=== PATIENT | male | born 1980 | race Caucasian/White ===

== ENCOUNTER 2021-01-13 07:35 | Outpatient (CLI) | payer OTHER, SELFPAY ==
--- NOTE | 2021-02-05 22:46 | WPDHOMESLEEP ---
Sleep Study - Home Unattended Date of Study: 01/13/21 Ordering Provider: Keith Disla PA-C Interpreting Provider: Tess Pedro MD Home Sleep Study Type: Apnea Link Air Height: 1.85 m Weight: 79.379 kg Body Mass Index: 23.1 Neck Circumference (inches): 15 Warfield: 13 Reason for Sleep Study hypersomnolence Sleep History Omkar Bae is a 40 year old male with complaints of snoring, restless sleep, constantly waking at night and never feeling rested in the morning. He always has excessive daytime sleepiness. He rarely awakens from sleep feeling short of breath. He occasionally awakens at night with heartburn, belching or coughing. He constantly snores loudly. He constantly has trouble sleeping with a cold. He rarely wakes up gasping for breath at night. He constantly is breathing problems at night observed by others. He does not sweat excessively at night. He occasionally notices his heart pounding or beating irregularly at night. He occasionally falls asleep during the day, never falls asleep involuntarily or while driving. He does not have loss of muscle tone with strong emotion. He rarely has daytime difficulties due to excessive sleepiness. He does not feel paralyzed on waking or falling asleep. He occasionally has vivid dreamlike scenes upon awakening or falling asleep. He does not feel afraid to go to sleep. He does not have nightmares. He occasionally remembers his dreams. He frequently has racing thoughts. He rarely feels sad, depressed or anxious. He occasionally has muscular tension. He frequently notices parts of his body jerking. He does not kick at night. He rarely has crawling and aching feelings in his legs. He does not have any kind of leg pain at night. He frequently has morning jaw pain, occasionally grinds his teeth during sleep. He occasionally is bothered by pain during the day. He does not awaken during the night due to pain. He occasionally wakes up feeling stiff in the morning, occasionally with sore or achy muscles and occasionally with pain in the neck and spine. He has fatigue. He has a deviated septum. Normal bedtime is 9:30 p.m. falling asleep within 15 minutes, typically waking 3-4 times at night for 5 minutes. While awake, he may rule over, change position or go urinate. He wakes in the morning at 6:00 a.m.. He estimates getting 7 hours of sleep at night. On the weekends he may go to bed a little later 10:30 p.m. but still wakes by 6:00 a.m.. He does not take naps. A short nap might be refreshing. He is usually drowsy for 2 hours or longer. He feels better in the morning compared to other times of day and this is after a workout. He never awakes feeling refreshed. .Habits: Never smoked tobacco. He does not drink caffeine. He drinks alcohol 1-2 on the days that he drinks, does drink daily. [facility] Past Medical History Medical History (Updated 02/05/21 @ 22:53 by Tess Pedro MD) Hyperlipidemia Hypertension Hypothyroidism Surgical History Surgical History Hx of LASIK Family History Family History Mother Patient's mother is in good health Father Patient's father is Hypertension Social History Social History Smoking status: Never smoker Second hand tobacco smoke exposure: No Alcohol intake: current Medications Home Medications Medication Instructions Recorded Confirmed Type lisinopril 10 mg tablet 10 mg PO DAILY #90 tablet 11/08/20 11/08/20 Rx nutritional supplement-fiber oral ea PO 11/08/20 11/08/20 History liquid levothyroxine 25 mcg tablet 25 mcg PO DAILY #90 tablet 02/04/21 Rx Sleep Procedure This test was performed using 4 channel monitoring including respiratory effort channel, snoring channel, heart rate channel, and oxygen saturat
[2021-02-05 22:56] VITALS: BMI 23.1
== END 2021-01-14 12:04 | disposition home or self-care (01) ==
LOC: ANHCSM 07:36
PROVIDERS: PCP Internal Medicine; Visit Provider Physician Assistant
DX: G47.10 Hypersomnia, unspecified (principal); R53.83 Other fatigue; R06.83 Snoring
CPT/HCPCS: 95806

== ENCOUNTER 2021-08-29 10:51 | Emergency (ER) | payer BC, SELFPAY ==
--- NOTE | ~2021-08-29 | XR_ITS ---
EXAMINATION: XR chest 1V portable DATE: 08/29/2021 11:20 INDICATION: Headache, dizziness and hypertension TECHNIQUE: frontal view of the chest was obtained. COMPARISON: None FINDINGS: Lungs are well-expanded and clear with no focal airspace opacities, pulmonary edema, pleural effusion or pneumothorax. The cardiomediastinal silhouette is normal. Mild lower thoracic levocurvature. IMPRESSION: 1. No acute cardiopulmonary disease. Reviewed, dictated and finalized at location A.
--- NOTE | ~2021-08-29 | CT_ITS ---
EXAMINATION: CT brain wo con EXAM DATE: 08/29/2021 11:05 INDICATION: Headache, dizziness, stroke protocol. Symptoms since last night. TECHNIQUE: Spiral CT of the head was performed without contrast. Axial, coronal and sagittal images were reviewed. The dose-length product (DLP) for this examination was 605.33 mGy-cm. The exposure w as tailored according to patient size, and iterative reconstruction (ASIR) was used as additional dos e reduction technique. There is no prior study for comparison. FINDINGS: There is no acute intraparenchymal hemorrhage. No evidence of intraparenchymal brain mass lesion. No evidence of acute infarction. There is no mass effect or midline shift. The ventricles are normal in size. There are no extra-axial collections. There are no acute calvarial fractures. T he orbits are unremarkable. Soft tissue is unremarkable. The visualized sinuses and mastoid air tal ls are well aerated. IMPRESSION: 1. No acute intracranial findings. As per stroke protocol, I called these results to emergency room, discussed with Joseph King at 08/29/2021 11:09 CDT. Reviewed, dictated and finalized at location B. IMPRESSION: 1. No acute intracranial findings. As per stroke protocol, I called these results to emergency room, discussed wit meena Zheng DO at 08/29/2021 11:09 CDT.
--- NOTE | ~2021-08-29 | CT_ITS ---
EXAMINATION: CTA brain carotid EXAM DATE: 08/29/2021 12:13 INDICATION: Vertigo, headaches. Dizziness. TECHNIQUE: Spiral CTA of the carotid arteries was performed with intravenous injection 100 cc of Om nipaque 350. Axial, coronal, sagittal reformatted images reviewed. Additional reformatted images cre ated on dedicated 3-D workstation. NASCET comparable standard used to assess the degree of arterial stenosis. Spiral CT angiogram cerebral arteries performed with the same intravenous injection of con trast. Source images of the brain CTA transferred to dedicated workstation for 3-D rotational image c reation. Coronal, sagittal maximum intensity pixel images also reviewed. The dose-length product (D LP) for this examination was 1325.57 mGy-cm. The exposure was tailored according to patient size, a nd iterative reconstruction (ASIR) was used as additional dose reduction technique. Correlation is ma de to noncontrast head CT earlier same date. FINDINGS: There is no carotid plaque, 0% carotid bulb stenosis bilaterally. The vertebral arteries ar e codominant. There is no carotid or vertebral basilar arterial dissection or fibromuscular dysplasi a. There are no cerebral artery aneurysms. There is symmetric cerebral artery arborization. The sagit alberto, transverse and sigmoid sinuses enhance normally, no venous sinus thrombosis. Internal cerebral v eins also enhance normally. Incidental Findings: Small amount of right maxillary sinus fluid and mild mucoperiosteal disease infe riorly. Clear mastoids and middle ears. IMPRESSION: 1. No acute carotid or intracranial findings. 2. Bilateral carotid bulb 0% stenosis. 3. Small right maxillary fluid and mild mucoperiosteal thickening. Reviewed, dictated and finalized at location B.
[2021-08-29 10:55] VITALS: BP 169/110; PULSE 68; RESP 18; TEMP 36.7; O2SAT 100
--- NOTE | 2021-08-29 10:56 | ECG_ITS ---
Measurements Intervals [place] Rate: 71 P: 71 DE: 119 QRS: 89 QRSD: 89 T: 65 QT: 358 QTc: 391 Interpretive Statements SINUS RHYTHM WITH SHORT DE INTERVAL POSSIBLE LEFT ATRIAL ENLARGEMENT [-0.1mV P WAVE IN V1/V2] BORDERLINE ECG NO PREVIOUS ECG AVAILABLE FOR COMPARISON Electronically Signed On 08-29-2021 17:19:29 CDT by Julio Cesar Nieto M.D.
[2021-08-29 11:10] VITALS: BP 155/99; PULSE 72; RESP 18; O2SAT 100
[2021-08-29 11:19] VITALS: BP 155/99; PULSE 70; PULSE 71; RESP 13; RESP 19; O2SAT 100
--- NOTE | 2021-08-29 11:19 | ED.NEUROSD ---
HPI - Neuro Symptoms/Deficit General Chief Complaint: Suspected CVA Stated Complaint: vertigo, headaches Time Seen by Provider: 08/29/21 10:56 Source: RN notes reviewed History of Present Illness HPI Narrative: Patient presents emergency department from home for dizziness. Patient states he was in bed this morning and rolled over approximately 4 AM he states he instantly had dizziness that has been intermittent since that time the dizziness is described as the room spinning he denies having any unilateral weakness or deficits he denies any fevers or chills vision changes facial droop trouble speaking weakness of the extremities or any other symptoms. Related Data Home Medications Medication Instructions Recorded Confirmed nutritional supplement-fiber oral ea PO 11/08/20 08/26/21 liquid Adrenal LF BYMOUTH DAILY 08/26/21 08/26/21 Lactobacillus cap PO 08/26/21 08/26/21 acidophilus-Bifidobac.animalis 2.5 billion cell capsule Thyro LF BYMOUTH BID 08/26/21 08/26/21 cholecalciferol (vitamin D3) 10 10 mcg PO DAILY 08/26/21 08/26/21 mcg/drop (400 unit/drop) oral drops omega 3,5,6,7,9 combination no.1 cap PO 08/26/21 08/26/21 700 mg-salmon oil 1,500 mg capsule Allergies Allergy/AdvReac Type Severity Reaction Status Date / Time No Known Allergies Allergy Verified 08/29/21 11:07 Review of Systems Review of Systems: Gen.: Denies fevers or chills ENT: Denies congestion Respiratory: Denies shortness of breath or cough CV: Denies chest pain or palpitations GI: Denies abdominal pain nausea, emesis or diarrhea denies burning, urgency, frequency or hematuria Musculoskeletal: Denies back pain or muscle pain Neuro: See HPI Skin: Denies rash Except as documented, all other systems reviewed and negative [facility] Past Medical History Medical History Hyperlipidemia Hypertension Hypothyroidism Surgical History Surgical History Hx of LASIK Family History Family History Mother Patient's mother is in good health Father Patient's father is Hypertension Social History Social History Smoking status: Never smoker Second hand tobacco smoke exposure: No Alcohol intake: current Exam Narrative: APPEARANCE: No acute distress, nontoxic, resting in bed HEENT: Normocephalic, atraumatic, OMM, TMs clear bilaterally EYES: PERRL, EOMI NECK: Supple, nontender, full range of motion without pain, no meningismus RESPIRATORY: No respiratory distress, clear to auscultation bilaterally with no rhonchi wheezing or rales CARDIOVASCULAR: RRR s murmur ABDOMINAL: Soft, nontender, nondistended MUSCULOSKELETAL: Moves all extremities. No clubbing, cyanosis or edema. NEURO: A and O ?3, following commands, speech normal, cranial nerves II through XII grossly intact,muscle strength 5 out of 5 bilateral upper and lower extremities, no pronator drift SKIN:: Warm, dry. Normal Color PSYCHIATRIC: Normal affect/mood Course Course Emergency Course: Patient states vertigo is improved at this time Discussed with patient results of workup and diagnosis. Discussed need for follow-up with primary care, proper use of medication, and reasons to return to the emergency department. Patient understands and agrees to current treatment plan Vital Signs Vital signs: Vital Signs Temperature 98.0 F 08/29/21 10:55 Pulse Rate 68 08/29/21 10:55 Respiratory Rate 18 08/29/21 10:55 Blood Pressure 169/110 H 08/29/21 10:55 Pulse Oximetry 100 08/29/21 10:55 Temperature 98.0 F 08/29/21 10:55 Pulse Rate 69 08/29/21 12:45 Respiratory Rate 18 08/29/21 12:45 Blood Pressure 136/87 08/29/21 12:45 Pulse Oximetry 100 08/29/21 12:45 MDM - Neuro Symptoms/Deficit MDM Narrative Medical decisi
[2021-08-29 11:24] LABS: Basophils Percent Auto 0.6 % (0.2-1.2); Eosinophils Absolute Auto 0.2 K/mm3 (0-0.3); Eosinophils Percent Auto 3.3 % (0-4.4); Hematocrit 46.1 % (42.0-52.0); Hemoglobin 15.8 g/dL (14.0-18.0); Immature Granulocyte Absolute 0.01 K/mm3 (0.00-0.031); Immature Granulocyte Percent A 0.2 % (0-0.5); Lymphocytes Absolute Auto 2.21 K/mm3 (0.9-3.2); Lymphocytes Percent Auto 42.6 % (18.3-44.2); Mean Corpuscular HGB Conc 34.3 g/dl (32-36); Mean Corpuscular Hemoglobin 30.2 pg (26-34); Mean Corpuscular Volume 88.1 fl (80-100); Mean Platelet Volume 9.7 fl (7.4-10.4); Monocytes Absolute Auto 0.4 K/mm3 (0.1-0.6); Monocytes Percent Auto 7.5 % (2.6-8.5); Neutrophils Absolute Auto 2.4 K/mm3 (1.3-6.7); Neutrophils Percent Auto 45.8 % (45.5-73.1); Platelet Count Result 231 k/mm3 (150-375); Red Blood Count 5.23 M/mm3 (4.6-6.20); White Blood Count 5.2 K/mm3 (4.5-10.0)
[2021-08-29] MEDS: SODIUM CHLORIDE 0.9% IV 1,000 ML 999 ML IV CONT (11:26)
[2021-08-29] MEDS: ONDANSETRON INJ 4 MG/2 ML VIAL IV PUSH (11:26)
[2021-08-29] MEDS: MECLIZINE HCL 25 MG TABLET PO (11:26)
[2021-08-29 11:33] LABS: INR 0.9; Partial Thromboplastin Time 27.1 SECONDS (22.3-36.8); Prothrombin Time 11.9 Seconds (11.1-14.7)
[2021-08-29 11:48] LABS: Alanine Aminotransferase 33 U/L (4-50); Albumin Level 4.8 g/dL (3.5-5.1); Alkaline Phosphatase 72 U/L (38-126); Anion Gap 9 mmol/L (8-16); Aspartate Amino Transferase 35 U/L (17-59); Bilirubin,Total 0.9 mg/dL (0.2-1.3); Blood Urea Nitrogen 18 mg/dL (9-20); Calcium 9.6 mg/dL (8.4-10.2); Carbon Dioxide 28 mmol/L (22-30); Chloride 102 mmol/L (98-107); Estimated CRCL calculation 94 ml/min; Estimated Glomerular Filt Rate > 60; Glucose 116 mg/dL (65-110); Potassium 4.3 mmol/L (3.4-5.0); Sodium 139 mmol/L (137-145)
[2021-08-29 11:59] LABS: Troponin I < 0.012 ng/mL (0.000-0.034)
[2021-08-29 12:45] VITALS: BP 136/87; PULSE 69; RESP 18; O2SAT 100
[2021-08-29 14:02] LABS: Glucose Point of Care 110 mg/dl (65-105)
== END 2021-08-29 14:02 | disposition home or self-care (01) ==
PROVIDERS: Emergency Provider Emergency Medicine; PCP Internal Medicine
DX: R42 Dizziness and giddiness (principal); E78.5 Hyperlipidemia, unspecified; I10 Essential (primary) hypertension; E03.9 Hypothyroidism, unspecified
CPT/HCPCS: 36415; 70450; 70496; 70498; 71045; 80053; 82948; 84484; 85025; 85610; 85730; 93005; 96361; 96374; 99284; A9270; J2405; J7030; Q9967

== ENCOUNTER 2022-08-16 09:25 | Emergency (ER) | payer BC, SELFPAY ==
[2022-08-16 09:31] VITALS: BP 148/93; PULSE 63; RESP 19; TEMP 36.6; O2SAT 100
--- NOTE | 2022-08-16 09:50 | ED.GENADULT ---
HPI - General Adult General Chief complaint: Eye Problems Stated complaint: right eye Source: patient Mode of arrival: ambulatory Limitations: no limitations History of Present Illness HPI narrative: Patient presents for evaluation of pain, swelling, redness to the right upper eyelid for the last week and a half. He initially saw an eye doctor that told him he had a stye. He was advised to apply warm compresses. He did perform these well at home. He denies any visual disturbance. He does not wear glasses or contacts. No fever, chills, nausea, vomiting. Related Data Home Medications Medication Instructions Recorded Confirmed Lactobacillus 1 cap PO DAILY 08/26/21 08/16/22 acidophilus-Bifidobac.animalis 2.5 billion cell capsule (Daily Probiotic) Thyro LF 1 ea BYMOUTH BID 08/26/21 08/16/22 cholecalciferol (vitamin D3) 10 10 mcg PO DAILY 08/26/21 08/16/22 mcg/drop (400 unit/drop) oral drops omega 3,5,6,7,9 combination no.1 1 cap PO DAILY 08/26/21 08/16/22 700 mg-salmon oil 1,500 mg capsule (Complete [place]) nutritional supplement-fiber oral 1 ea PO DAILY 07/21/22 08/16/22 liquid Allergies Allergy/AdvReac Type Severity Reaction Status Date / Time No Known Allergies Allergy Verified 08/16/22 09:33 Review of Systems Review of Systems: CONSTITUTIONAL: Denies fever, chills, or sweats. EYES: reports redness, swelling and pain to the right upper eyelid. Denies visual changes, redness to the globe, or discharge. ENT: Denies rhinorrhea, congestion, sore throat, or otalgia. CARDIOVASCULAR: Denies chest pain, palpitations, or edema. RESPIRATORY: Denies cough or dyspnea. GASTROINTESTINAL: Denies abdominal pain, nausea, vomiting, or diarrhea. GENITOURINARY: Denies dysuria or hematuria. SKIN: Denies rash or itching. MUSCULOSKELETAL: Denies back pain, joint pain, or myalgia. NEUROLOGIC: Denies headache, numbness, dizziness, or weakness. PSYCHIATRIC: Denies anxiety or depression. [facility] Past Medical History Medical History Hyperlipidemia Hypertension Hypothyroidism Surgical History Surgical History Hx of HAL Family History Family History Mother Patient's mother is in good health Father Patient's father is Hypertension Social History Social History Smoking status: Never smoker Second hand tobacco smoke exposure: No Alcohol intake: current Lack of Transportation: No Lack of Food: Never True Current Housing: Decline to Answer Concerned About Future Housing: Decline to Answer Difficulty Paying Gas/Electric Bills: Decline to Answer Difficulty Paying for Meds: Decline to Answer Currently Unemployed: Decline to Answer Education: Decline to Answer Difficulty w/ Childcare or Family Care: No Exam Narrative: GENERAL: Well-appearing, well-nourished, and in no acute distress. HEAD: Normocephalic, atraumatic. EYES: PERRLA and EOMI. There is erythema and swelling to right upper eyelid. ENT: Nares clear, no rhinorrhea or epistaxis. Mucous membranes moist. Oropharynx without tonsillar hypertrophy exudate or other lesions. Bilateral TMs pearly apyan nonbulging NECK: Supple. No adenopathy or masses. No carotid bruits or JVD CHEST: Clear to auscultation. No respiratory distress. No wheezes rales or rhonchi HEART: Regular rate and rhythm. No murmur heard. Normal peripheral pulses. ABDOMEN: Soft, nontender, nondistended, normal active bowel sounds. EXTREMITIES: Normal range of motion. No edema. SKIN: Warm, dry, no rash. NEURO: No focal deficits. Alert and oriented x3. PSYCH: Normal mood and affect. Course Course Emergency Course: this is a 41-year-old male who presented for evaluation of swelling, redness, pain to
== END 2022-08-16 09:48 | disposition home or self-care (01) ==
PROVIDERS: Emergency Provider Nurse Practitioner; PCP Internal Medicine
DX: H00.011 Hordeolum externum right upper eyelid (principal); E78.5 Hyperlipidemia, unspecified; I10 Essential (primary) hypertension; E03.9 Hypothyroidism, unspecified
CPT/HCPCS: 99213; G0463

== ENCOUNTER 2025-01-16 00:38 | Day surgery (SDC) | payer BC, SELFPAY ==
[2025-01-02 08:55] VITALS: BMI 22.4
--- OUTSIDE RECORDS SUMMARY | 2025-01-16 00:40 | XMS_ITS | Continuity of Care Document ---
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 Tania STILES Unavailable Unavail able Procedures Procedure Date Injection shoulder arthgrphy/CT/MRI Fluoroscopic Guidance; Non Spinal Omnipaque, 300-399 mg/ml, per ml 2023 Gadavist Injection, Gadobutrol, 0.1mL Au Advance Directives Directive Yes / No Effective Date File Name No Information Encounters Encounter Description Practice Location Reason(s) For Visit Diagnoses Date Provider Providers Copied on Encounter [facility], [address], [place], [place], [id number], [place] tel:[phone] Professional Imaging right shoulder pain (chief complaint) Pain in right shoulder [place] [facility] [place] . [address], [address], [place], [place], [id number] , [place]. tel:[phone] Family History Family Member Type Diagnosis Age At Onset No Information Payers Payer name Insurance type Covered alliance party ID Authoriza tion(s) No Information Social History Type Description Quantity Date Captured Comments Alcohol Use Details Unknown Caffeine Use Details Unknown Tobacco Use Status No Information Smoking Status No Information Sex Male Chief Complaint And Reason For Visit From encounter dated '12/31/2023 11:30'. right shoulder pain (chief complaint). Description: Omkar Bae is a 43 year old male. He presents with pain on the right side. Reason For Referral Reason For Referral No Information History Of Present Illness Encounter Date Complaint History Of Prese nt Illness right shoulder pain Omkar Bae i s a 43 year old male. He presents with pain on the right side. Functional Status Date Functional Assessmen t No Information Instructions Date Instruction Additional Infor mation Injection performed today as documented. Continue non-operative treatments as outlined previously. Follow up prn if symptoms return or worsen. Questions answered, verbalized understanding. Successful shoulder arthrogram was preformed under fluoro guidance without complications. See the report of the MRI post arthrogram from the same date for more detailed findings. Questions answered, verbalized understanding. Related to Pain in right shoulder Assessments Type Assessment Date assessment Pain in right shoulder 23 Patient Care Teams Name Effective Dates (start - stop) Status Members No Information
--- OUTSIDE RECORDS SUMMARY | 2025-01-16 00:40 | XMS_ITS | Continuity of Care Document ---
Author Name [facility] Organization [facility] Care Team Providers Care Jump Roll Operator Name Role Phone [facility] Unavailable Unavailable Problems Combined list of problems from Department of Defense and Veterans Affairs facilities. It does not include entries that were removed or entered in error. Problem Status Onset Date Problem Type Date of Resolution Comments Source visit for: routine eye exam Inactive 01/25/2006 Condition DoD ASTIGMATISM Active Condition [facility] REFRACTIVE ERROR - MYOPIA Active Condition DoD Immunizations Combined list of available immunizations from the Department of Defense and Veterans Affairs facilities. Immunization Series Date Given Administered By Site Reaction Lot Number CVX Code Drug Gastroenterology Physician Status Comments Source COVID Vaccine Moderna 2020 [id number] complet ed COVID Vaccine Moderna 09/05/20 Given Ambulat ory Pharmac y SARS-COV-2 (COVID-19) vaccine, mRNA, spike protein, LNP, preservative free, 100 mcg or 50 mcg dose 2 2020 Unknown, Provider [id number] 207 Moderna US, Inc. (MOD) complet ed SARS-COV- 2 (COVID-19 ) vaccine, mRNA, spike protein, LNP, preservat fidel free, 100 mcg or 50 mcg dose DoD COVID Vaccine Moderna 2020 [id number] complet ed COVID Vaccine Moderna 08/08/20 Given Ambulat ory Pharmac y SARS-COV-2 (COVID-19) vaccine, mRNA, spike protein, LNP, preservative free, 100 mcg or 50 mcg dose 1 2020 Unknown, Provider [id number] 207 Moderna US, Inc. (MOD) complet ed SARS-COV- 2 (COVID-19 ) vaccine, mRNA, spike protein, LNP, preservat fidel free, 100 mcg or 50 mcg dose DoD influenza, injectable, quadrivalent- pf 2019 150 GlaxoSmithKli ne complet ed influenza , injectabl e, quadrival ent-pf 05/13/20 Given Ambulat ory Pharmac y influenza, injectable, quadrivalent, preservative free 2019 ALUL, () Not Given influenza , injectabl e, quadrival ent, preservat fidel free DoD Influenza, injectable, quadrivalent, preservative free 1 2019 Unknown, Provider 150 Ravinlakia (PANCHITO) complet ed Influenza , injectabl e, quadrival ent, preservat fidel free DoD tetanus, diphtheria, acellular pertu [id number] 115 GlaxoSmithKl ne complet ed tetanus, diphtheri a, acellular pertussis 03/02/20 Given Ambulat ory Pharmac y tetanus toxoid, reduced diphtheria toxoid, and acellular pertu is vaccine, adsorbed 3 2019 Unknown, Provider [id number] 115 Ravinine (PANCHITO) complet ed tetanus toxoid, reduced diphtheri a toxoid, and acellular pertussis vaccine, adsorbed DoD influenza, injectable, quadrivalent [facility] [id number] 158 Seqirus complet ed influenza , injectabl e, quadrival ent 03/04/19 Given Ambulat ory Pharmac y influenza, injectable, quadrivalent, contains preservative 21 2018 Unknown, Provider [id number] 158 Seqirus (SEQ) complet ed influenza , injectabl e, quadrival ent, contains preservat fidel DoD influenza, injectable, quadrivalent [facility] [id number] 158 Seqirus complet ed influenza , injectabl e, quadrival ent 07/30/18 Given Ambulat ory Pharmac y influenza, injectable, quadrivalent, contains preservative 1 2018 Unknown, Provider [id number] 1A 158 Seqirus (SEQ) complet ed influenza , injectabl e, quadrival ent, contains preservat fidel DoD influenza, seasonal, injectable-pf 2016 zzLef t Arm [id number] GlaxoSmithKli ne complet ed influenza , seasonal, injectabl e-pf 03/06/17 Given Ambulat ory Pharmac y Influenza, seasonal, injectable, preservative free 19 2016 Unknown, Provider [id number] [facility] ([place]) complet ed Influenza , seasonal, injectabl e, preservat fidel free DoD influenza, injectable, quadrivalent- pf [facility] [id number] 150 GlaxoSmithKli ne complet ed influenza , injectabl e, quadrival ent-pf 02/29/16 Given Ambulat ory Pharmac y Influenza, injectable, quadrivalent, preservative free 18 2015 Unknown, Provider [id number] [facility] (SKB) complet ed Influenza , injectabl e, quadrival ent, preservat fidel free DoD influenza, live, intranasal,qu adrivalent 2014 [id number] 149 Medimmune Inc comple t ed influenza , live, intranasa l,quadriv alent 04/06/15 Given Ambulat ory Pharmac y influenza, live, intranasal, quadrivalent 1 2014 Unknown, Provider [id number] 149 MedImmune, Inc. (MED) complet ed influenza , live, intranasa l, quadrival ent DoD typhoid Vi capsular polysaccharid e vac [facility] [id number] 101 sanofi pasteur complet ed typhoid Vi capsular polysacch aride vac 07/07/14 Given Ambulat ory Pharmac y hepatitis B adult vaccine [facility] [id number] 43 Merck & Company Inc complet ed hepatitis B adult vaccine 07/07/14 Given Ambulat ory Pharmac y hepatitis B vaccine, adult dosage 3 2014 Unknown, Provider [id number] 43 Merck (MSD) complet ed hepatitis B vaccine, adult dosage DoD typhoid Vi capsular polysaccharid e vaccine 1 2014 Unknown, Provider [id number] Sanofi Pasteur ([facility]) complet ed typhoid Vi capsular polysacch aride vaccine DoD influenza, live, intranasal,qu adrivalent 2013 [id number] 149 Medimmune Inc comple t ed influenza , live, intranasa l,quadriv alent 03/31/14 Given Ambulat ory Pharmac y influenza, live, intranasal, quadrivalent 16 2013 Unknown, Provider [id number] 149 MedImmune, Inc. (MED) complet ed influenza , live, intranasa l, quadrival ent DoD hepatitis B adult vaccine 2013 zzLef t Arm [id number] 43 Merck & Company Inc complet ed hepatitis B adult vaccine 11/04/13 Given Ambulat ory Pharmac y hepatitis B vaccine, adult dosage 2 2013 Unknown, Provider [id number] 43 Merck (MSD) complet ed hepatitis B vaccine, adult dosage DoD hepatitis B adult vaccine 2013 zzL t Arm [id number] 43 GlaxoSmithKli ne complet ed hepatitis B adult vaccine 09/02/13 Given Ambulat ory Pharmac y hepatitis B vaccine, adult dosage 1 2013 Unknown, Provider [id number] 43 SmithKline (SKB) complet ed hepatitis B vaccine, adult dosage DoD influenza, live, intranasal,qu adrivalent 2012 [id number] Medimmune Inc comple t ed influenza , live, intranasa l,quadriv alent 04/01/13 Given Ambulat ory Pharmac y influenza, live, intranasal, quadrivalent 1 2012 Unknown, Provider [id number] 149 MedImmune, Inc. (MED) complet ed influenza , live, intranasa l, quadrival ent DoD influenza virus vaccine, live 2011 [id number] Medimmune Inc comple t ed influenza virus vaccine, live 03/19/12 Given Ambulat ory Pharmac y influenza virus vaccine, live, attenuated, for intranasal use 1 2011 Unknown, Provider [id number] 111 MedImmune, Inc. (MED) complet ed influenza virus vaccine, live, attenuate d, for intranasa l use DoD influenza virus vaccine, live 2010 [id number] Medimmune Inc comple t ed influenza virus vaccine, live 04/05/11 Given Ambulat ory Pharmac y influenza virus vaccine, live, attenuated, for intranasal use 13 2010 Unknown, Provider [id number] 111 MedImmune, Inc. (MED) complet ed influenza virus vaccine, live, attenuate d, for intranasa l use DoD influenza virus vaccine, live 2009 [id number] 111 Medimmune Inc comple t ed influenza virus vaccine, live 03/01/10 Given Ambulat ory Pharmac y influenza virus vaccine, live, attenuated, for intranasal use 1 2009 Unknown, Provider [id number] 111 MedImmune, Inc. (MED) complet ed influenza virus vaccine, live, attenuate d, for intranasa l use DoD tetanus, diphtheria, acellular pertu is 2009 zzL t Arm [id number] 115 sanofi pasteur complet ed tetanus, diphtheri a, acellular pertussis 11/03/09 Given Ambulat ory Pharmac y tetanus toxoid, reduced diphtheria toxoid, and acellular pertu is vaccine, adsorbed 1 2009 Unknown, Provider [id number] 115 Sanofi Pasteur ([facility]) complet ed tetanus toxoid, reduced diphtheri a toxoid, and acellular pertussis vaccine, adsorbed DoD Novel influenza-H1N 1-09, injectable 2009 Joyce t Arm [id number] 127 Novartis Pharmaceutica complet ed Novel influenza -[id number], injectabl e 06/09/09 Given Ambulat ory Pharmac y influenza virus vaccine, live 2009 [id number] 111 Medimmune Inc comple t ed influenza virus vaccine, live 06/09/09 Given Ambulat ory Pharmac y influenza virus vaccine, live, attenuated, for intranasal use 2009 Unknown, Provider [id number] 111 MedImmune, Inc. (MED) complet ed influenza virus vaccine, live, attenuate d, for intranasa l use DoD Novel influenza-H1N 1-09, injectable 1 2009 Unknown, Provider [id number] 127 [employer] Steve. (NOV) complet ed Novel influenza -[id number], injectabl e DoD influenza virus vaccine, live 2007 [id number] 111 Medimmune Inc comple t ed influenza virus vaccine, live 04/01/08 Given Ambulat ory Pharmac y influenza virus vaccine, live, attenuated, for intranasal use 1 2007 Unknown, Provider [id number] 111 MedImmune, Inc. (MED) complet ed influenza virus vaccine, live, attenuate d, for intranasa l use DoD typhoid Vi capsular polysaccharid e vac 2007 [facility] Arm [id number] 101 sanofi pasteur complet ed typhoid Vi capsular polysacch aride vac 07/31/07 Given Ambulat ory Pharmac y typhoid Vi capsular polysaccharid e vaccine 1 2007 Unknown, Provider [id number] Sanofi Pasteur ([facility]) complet ed typhoid Vi capsular polysacch aride vaccine DoD influenza virus vaccine, live 2006 [id number] 111 Medimmune Inc comple t ed influenza virus vaccine, live 04/27/07 Given Ambulat ory Pharmac y influenza virus vaccine, live, attenuated, for intranasal use 2006 Unknown, Provider [id number] 111 MedImmune, Inc. (MED) complet ed influenza virus vaccine, live, attenuate d, for intranasa l use [facility] influenza virus vaccine,split 2005 zzLef t Arm [id number] 15 sanofi pasteur complet ed influenza virus vaccine,s plit 03/31/06 Given Ambulat ory Pharmac y influenza virus vaccine, split virus (incl. purified surface antigen)-reti red CODE 1 2005 Unknown, Provider [id number] 15 Sanofi Pasteur ([facility]) complet ed influenza virus vaccine, split virus (incl. purified surface antigen)- retired CODE DoD vaccinia (smallpox) vaccine 2005 zzLef t Arm [id number] 75 [facility] complet ed vaccinia (smallpox ) vaccine 11/07/05 Given Ambulat ory Pharmac y vaccinia (smallpox) vaccine 1 2005 Unknown, Provider [id number] 75 [facility] ([facility]) complet ed vaccinia (smallpox ) vaccine DoD influenza virus vaccine,split 2004 zzLef t Arm [id number] 15 sanofi pasteur complet ed influenza virus vaccine,s plit 04/18/05 Given Ambulat ory Pharmac y influenza virus vaccine, split virus (incl. purified surface antigen)-reti red CODE 1 2004 Unknown, Provider [id number] 15 Sanofi Pasteur ([facility]) complet ed influenza virus vaccine, split virus (incl. purified surface antigen)- retired CODE [facility] typhoid vaccine, inactivated 2004 freddyzCady Arm [id number] 101 sanofi pasteur complet ed typhoid vaccine, inactivat ed 07/26/04 Given Ambulat ory Pharmac y typhoid vaccine, parenteral, other than acetone-kille d, dried 1 2004 Unknown, Provider [id number] 41 Sanofi Pasteur ([facility]) complet ed typhoid vaccine, parentera l, other than acetone-k illed, dried [facility] influenza virus vaccine, live 2004 zzLef t Arm [id number] 111 [employer] Inc complet ed influenza virus vaccine, live 06/07/04 Given Ambulat ory Pharmac y influenza virus vaccine, live, attenuated, for intranasal use 1 2004 Unknown, Provider [id number] 111 [employer], Inc. (MED) complet ed influenza virus vaccine, live, attenuate d, for intranasa l use [facility] influenza virus vaccine, whole virus [facility] [id number] 16 Novartis Pharmaceutica ls complet ed influenza virus vaccine, whole virus 03/24/03 Given Ambulat ory Pharmac y influenza virus vaccine, whole virus 1 2002 Unknown, Provider [id number] [employer] (PWJ) complet ed influenza virus vaccine, whole virus DoD typhoid vaccine, inactivated [id number] 101 sanofi pasteur complet ed typhoid vaccine, inactivat ed 07/01/02 Given Ambulat ory Pharmac y typhoid vaccine, parenteral, other than acetone-kille d, dried 1 2002 Unknown, Provider [id number] 41 Sanofi Pasteur ([facility]) complet ed typhoid vaccine, parentera l, other than acetone-k illed, dried DoD tuberculin purified protein derivative 2002 zzL t Arm [id number] 96 sanofi pasteur complet ed Patient Tolerance : Negative Ambulat ory Pharmac y tuberculin skin test; purified protein derivative solution, intradermal 1 2002 Unknown, Provider [id number] 96 Sanofi Pasteur ([facility]) complet ed tuberculi n skin test; purified protein derivativ e solution, intraderm al DoD influenza virus vaccine, whole virus [facility] [id number] 16 sanofi pasteur complet ed influenza virus vaccine, whole virus 04/03/02 Given Ambulat ory Pharmac y influenza virus vaccine, whole virus 1 2001 Unknown, Provider [id number] 16 Sanofi Pasteur ([facility]) complet ed influenza virus vaccine, whole virus DoD tuberculin purified protein derivative 2001 zzLef t Arm [id number] 96 sanofi pasteur complet ed Patient Tolerance : Negative Ambulat ory Pharmac y tuberculin skin test; purified protein derivative solution, intradermal 1 2001 Unknown, Provider [id number] 96 Sanofi Pasteur ([facility]) complet ed tuberculi n skin test; purified protein derivativ e solution, intraderm al DoD influenza virus vaccine, whole virus 2000 zzLef t Arm [id number] 16 sanofi pasteur complet ed influenza virus vaccine, whole virus 05/03/01 Given Ambulat ory Pharmac y influenza virus vaccine, whole virus 1 2000 Unknown, Provider [id number] 16 Sanofi Pasteur ([facility]) complet ed influenza virus vaccine, whole virus DoD hepatitis A adult vaccine 2000 zzLef t Arm [id number] Merck & Company Inc complet ed hepatitis A adult vaccine 08/07/00 Given Ambulat ory Pharmac y yellow fever vaccine 2000 zzLef t Arm [id number] 37 sanofi pasteur complet ed yellow fever vaccine 08/07/00 Given Ambulat ory Pharmac y yellow fever vaccine 1 2000 Unknown, Provider [id number] 37 Sanofi Pasteur ([facility]) complet ed yellow fever vaccine DoD hepatitis A vaccine, adult dosage 2 2000 Unknown, Provider [id number] Merck (MSD) complet ed hepatitis A vaccine, adult dosage DoD typhoid vaccine, inactivated 2000 zzLef t Arm [id number] sanofi pasteur complet ed typhoid vaccine, inactivat ed 06/20/00 Given Ambulat ory Pharmac y tuberculin purified protein derivative 2000 zzLef t Arm [id number] 96 [facility] complet ed Patient Tolerance : Negative Ambulat ory Pharmac y influenza virus vaccine, whole virus 2000 zzLef t Arm [id number] 16 [employer] complet ed influenza virus vaccine, whole virus 06/20/00 Given Ambulat ory Pharmac y influenza virus vaccine, whole virus 1 2000 Unknown, Provider [id number] 16 [facility] ([facility]) complet ed influenza virus vaccine, whole virus DoD typhoid vaccine, parenteral, other than acetone-kille d, dried 1 2000 Unknown, Provider [id number] 41 Sanofi Pasteur ([facility]) complet ed typhoid vaccine, parentera l, other than acetone-k illed, dried DoD tuberculin skin test; purified protein derivative solution, intradermal 1 2000 Unknown, Provider [id number] 96 [facility] ([facility]) complet ed tuberculi n skin test; purified protein derivativ e solution, intraderm al DoD hepatitis A adult vaccine 1999 [id number] 52 Merck & Company Inc complet ed hepatitis A adult vaccine 10/31/99 Given Ambulat ory Pharmac y poliovirus vaccine, inactivated 1999 [id number] [facility] complet ed polioviru s vaccine, inactivat ed 10/31/99 Given Ambulat ory Pharmac y poliovirus vaccine, inactivated 1 1999 Unknown, Provider [id number] Evelyn (CON) complet ed polioviru s vaccine, inactivat ed DoD hepatitis A vaccine, adult dosage 1 1999 Unknown, Provider [id number] 52 Merck (MSD) complet ed hepatitis A vaccine, adult dosage DoD tuberculin purified protein derivative 1999 [id number] [facility] complet ed Patient Tolerance : Negative Ambulat ory Pharmac y tetanus-dipht h toxoids (Td) adult/adol 1999 [id number] [facility] complet ed tetanus-d iphth toxoids (Td) adult/ado l 10/24/99 Given Ambulat ory Pharmac y influenza virus vaccine, whole virus 1999 [id number] 16 [facility] influenza virus vaccine, whole virus 10/24/99 Given Ambulat ory Pharmac y meningococcal polysaccharid e (MPSV4) 1999 [id number] 32 [facility] meningoco ccal polysacch aride (MPSV4) 10/24/99 Given Ambulat ory Pharmac y tetanus and diphtheria toxoids, adsorbed, preservative free, for adult use (2 Lf of tetanus toxoid and 2 Lf of diphtheria toxoid) 1 1999 Unknown, Provider [id number] 09 Anuj ([facility]) complet ed tetanus and diphtheri a toxoids, adsorbed, preservat fidel free, for adult use (2 Lf of tetanus toxoid and 2 Lf of diphtheri a toxoid) [facility] influenza virus vaccine, whole virus 1 1999 Unknown, Provider [id number] 16 Ev[facility] (CON) complet ed influenza virus vaccine, whole virus DoD meningococcal polysaccharid e vaccine (MPSV4) 1 1999 Unknown, Provider [id number] 32 Evelyn (CON) complet ed meningoco ccal polysacch aride vaccine (MPSV4) DoD tuberculin skin test; purified protein derivative solution, intradermal 1 1999 Unknown, Provider [id number] 96 Ev[facility] (CON) complet ed tuberculi n skin test; purified protein derivativ e solution, intraderm al DoD Encounters Combined list of: 1) Encounters from Department of Veterans Affairs facilities going backup to the last 18 months, not all VA inpatient encounters are included; 2) Encounters from the Department of Defense facilities going backup to 280 months. Location Location Details Encounter Type Encounter Number Reason For Visit Attending Provider ADM Date DC Date Status Disposition Source [address] [place] [address] Kenneth [facility])(Opt ometry) OUTPATIENT [id number] eye exam LOGAN BHAGAT 01/25 Released w/o Limitations [address] [place] [address] Kenneth [facility] ([facility]O ptometr y) [address] [place] [address] Kenneth [facility])(Old clinic) OUTPATIENT [id number] Notes Entered by: SHARI HURTADO 05 Sep 2017 1132 ------- ------- ------- ------- -- PHA CHARO Spence 09/05 Released w/o Limitations [address] [place] [address] Kenneth [facility])(O ldclini c) [address] [place] [address] Kenneth [facility])([facility]) OUTPATIENT [id number] SUDHA PARHAM 10/02 Released w/o Limitations [address] [place] [address] Kenneth [facility])(06 25 [facility]) [address] [place] [address] Kenneth [facility])(126 [facility]) TELE CONSULT [id number] Notes Entered by: LOGAN OH 09 Jul 2019 1000 ------- ------- ------- ------- -- LOGAN PERDOMO 07/[address] [place] [address] Kenneth [facility])(06 25 [facility]) [address] [place] [address])(126 [facility]) OUTPATIENT [id number] Notes Entered by: Alejandro HART 24 Jul 2020 1327 ------- ------- ------- ------- -- PAUL Dacosta 07/24 Released w/o Limitations [address] [place] [address] Kenneth B ([facility]06 25[facility]) [address] [place] [address] Kenneth [facility])(126 [facility]) TELE CONSULT [id number] Notes Entered by: DELIO MOLINA 25 Jul 2020 1005 ------- ------- ------- ------- -- Review JOEL MOLINA 07/25 Other Not Elsewhere Classified [address] [place] [address])(06 25 [facility]) [address] [place] [address])( Primary Care Clinic) OUTPATIENT [id number] Notes Entered by: Alejandro HART 31 Jul 2020 1028 ------- ------- ------- ------- -- maria isabel1 PAUL HART 07/31 Released w/o Limitations [address] [place] [address])(06 25 [facility]) [address] [place] [address])( [facility]) OUTPATIENT [id number] Notes Entered by: Alejandro HART 27 Nov 2020 1551 ------- ------- ------- ------- -- maria isabel2 PAUL HART 11/27 Released w/o Limitations [address] [place] [address])(06 25 [facility]) Procedures Combined list of: 1) Procedures from Department of Veterans Affairs facilities [facility], not all VA non-surgical procedures are included; 2) All procedures from the Department of Defense facilities. Procedure Procedure Type Code Date Perfomer Comments Sourc e No data available for this section Ambulato ry Pharmacy Ophthalmological New Patient Start Comprehensive Care Ophthalmological New Patient Start Comprehensive Care [id number] LOGAN BHAGAT Visual Garay Test Intermediate Examination Visual Garay Test Intermediate Examination [id number] LOGAN BHAGAT Determination Of Refractive State Determination Of Refractive State 54052 LOGAN BHAGAT [facility] Fitting Monofocals (Not For Aphakia) [facility] Fitting Monofocals (Not For Aphakia) 47467 LOGAN BHAGAT FITTING OF SPECTACLES, EXCEPT FOR APHAKIA; MONOFOCAL Sharon Social History Combined list of available smoking, tobacco, and other social history from Department of Defense and Veterans Affairs facilities. Social History Type Response Date Comment Sour e This section is an empty social history section. [facility] Assessment and Plan Combined list of future care activities from Department of Defense and Veterans Affairs facilities (e.g., assessment and plan notes, appointments, orders, and referrals). Additional future care activities may be listed in the Plan of Care section. Result Assessment and Plan Date Source Assessment and Plan No data available for this section 01/16/2025 Ambulatory Pharmacy Functional Status Combined list of recent functional and cognitive assessments recorded at Department of Defense and Veterans Affairs (VA).VA Functional [place] Measurement (FIM) Scale: 1 = Total Assistance (Subject = 0% +), 2 = Maximal Assistance (Subject = 25% +), 3 = Moderate Assistance (Subject = 50% +), 4 = Minimal Assistance (Subject = 75% +), 5 = Supervision, 6 = Modified [place] (Device), 7 = Complete [place] (Timely, Safely). Assessment Date/Time Source Assessment Type Assessment Skill Assessment Score Assessment Details No data available for this section
--- OUTSIDE RECORDS SUMMARY | 2025-01-16 00:40 | XMS_ITS | Clinical Summary ---
Author Organization [facility] Address [address] [place] [address] Care Team Providers Care Woodworker Name Role Phone Mandeep Frias MD Primary Care Provider [phone] Social History Tobacco Use Types Packs/Day Years Used Date Smoking Tobacco: Never Assessed Sex and Gender Information Value Date Recorded Sex Assigned at Not on file Legal Sex Male 4:55 PM CDT Gender Identity Not on file Sexual Orientation Not on file Plan of Treatment Health Maintenance Due Date Last Done Comments Colorectal Cancer Screening Colonoscopy (10 Years) 1979 Annual Physical 09/22/1982 Hepatitis C 09/22/1997 HPV Vaccines (1 - 3-dose SCD M series) 09/22/2006 COVID-19 Vaccine ( - 2023-2 5 season) 2024 09/05/2020, 08/08/2020 DTaP, Tdap and Td Vaccines ( 3 - Td or Tdap) 03/02/2030 03/02/2020, 11/03/2009, 10/24/1999 Meningococcal Vaccine Aged Out 10/24/1999 No roxie tushar eligible based on patient's age to complete this topic Hepatitis B Vaccines Completed 07/07/2014, 11/04/2013, 09/02/2013 Meningococcal B Vaccine Aged Out No l onger eligible based on patient's age to complete this topic Pneumococcal Vaccine: Pediatrics (0 to 5 Years) and At-Risk Patients (6 to 49 Years) Aged Out No longer eligible b ased on patient's age to complete this topic RSV Immunizations Under 20 Months Aged Out No longer eligible b ased on patient's age to complete this topic Insurance [facility] Care Teams Woodworker Relationship Specialty Start Date End Date Mandeep Frias MD [address] [place] [address] PCP - General INTERNAL MEDICINE 12/31/22
--- OUTSIDE RECORDS SUMMARY | 2025-01-16 00:40 | XMS_ITS | Clinical Summary ---
Author Organization [facility] Address [address] [place] [place] [address] Phone Care Team Providers Care Panel Saw Operator Name Role Phone Unavailable Primary Care Provider Unavailabl e Allergies No known active allergies Medications HYDROcodone-enrique taminophen (NORCO) 5-325 mg tabletIndicatio ns:Status post vasectomy Take 1 Tablet by mouth every 4 hours as needed for Pain. Max Daily Amount: 6 Tablets 20 Tablet 10/26/2019 Active cephALEXin (KEFLEX) 500 mg capsule Take 1 Capsule (500 mg) by mouth 2 times daily. 6 Capsule 10/26/2019 Active Active Problems No known active problems Social History Tobacco Use Types Packs/Day Years Used Date Smoking Tobacco: Never Smokeless Tobacco: Never Sex and Gender Information Value Date Recorded Sex Assigned at Not on file Legal Sex Male 1:08 PM CDT Gender Identity Not on file Sexual Orientation Not on file Last Filed Vital Signs Vital Sign Reading Time Taken Comments Blood Pressure - - Pulse - - Temperature - - Respiratory Rate - - Oxygen Saturation - - Inhaled Oxygen Concentration - - Weight 74.4 kg (164 lb) 03/06/2019 1:52 PM CDT Height 185.4 cm (6' 1) 03/06/2019 1:52 PM CDT Body Mass Index 21.64 03/06/2019 1:52 PM CDT Plan of Treatment Health Maintenance Due Date Last Done Comments HPV VACCINES (1 - Male 3-dose series) 09/22/1994 DTAP/TDAP/TD VACCINES (1 - Tdap) 09/22/1998 HEPATITIS B VACCINES (1 of 3 - 19+ 3-dose series) 08/30 COLORECTAL SCREENING 09/22/2024 Colorectal Cancer Screening 09/22/2024 FIT-DNA Q 3 years 09/22/2024 FIT/FOBT Q 1 year 09/22/2024 Flex Sig/CT Colonography Q 5 years 09/22/2024 INFLUENZA VACCINE (#1) 2024 Insurance [facility]
[2025-01-16 10:21] VITALS: BP 154/96; PULSE 69; RESP 18; TEMP 36.2; O2SAT 99
[2025-01-16] MEDS: LACTATED RINGERS 1,000 ML 150 ML IV CONT (10:29)
--- NOTE | 2025-01-16 10:38 | WPDANESEPPF ---
Anes - Initial Pre Proc Eval Procedure: Operation Date: 01/16/25 11:30 Proposed Procedures p Screening Colonoscopy - Rhett Roth DO Date/Time: 01/16/25 10:38 Surgeon: Rhett Roth DO Pre Op Diagnosis: Screening for malignant neoplasm of colon Patient Data Age: 44 Gender: M Height: 1.85 m Weight: 75.5 kg Last Vital Signs Temp 36.2 C L 01/16/25 10:21 Pulse 69 01/16/25 10:21 Resp 18 01/16/25 10:21 BP 154/96 H 01/16/25 10:21 Pulse Ox 99 01/16/25 10:21 O2 Del Method Room Air 01/16/25 10:21 Allergies Allergy/AdvReac Type Severity Reaction Status Date / Time No Known Allergies Allergy Verified 01/16/25 10:20 Home Medications ?Medication ?Instructions ?Recorded ?Confirmed ?Type Lactobacillus 1 cap PO DAILY 08/26/21 01/16/25 History acidophilus-Bifidobac.animalis 2.5 billion cell capsule (Daily Probiotic) omega 3,5,6,7,9 combination no.1 1 cap PO DAILY 08/26/21 01/16/25 History 700 mg-salmon oil 1,500 mg capsule (Complete [place]) lisinopril 10 mg tablet 10 mg PO DAILY #90 tabs 07/19/24 01/16/25 Rx Patient hx anesthesia problems: none Family hx anesthesia problems: none Results Review: All pre-operative results and documents have been reviewed as part of the pre-operative evaluation. [facility] Past Medical History Medical History Hyperlipidemia Hypothyroidism Hypertension Surgical History Surgical History History of nasal septoplasty Hx of LASIK Family History Family History Mother Patient's mother is in good health Father Patient's father is Hypertension Social History Social History Smoking status: Never smoker Second hand tobacco smoke exposure: No Alcohol intake: never Substance use: never Substance use type: does not use Do You Feel Safe in your Home?: Yes Lack of Transportation: No Lack of Food: Never True Current Housing: I Have Housing Concerned About Future Housing: No Difficulty Paying Gas/Electric Bills: No Difficulty Paying for Meds: No Currently Unemployed: No Education: Bachelor's Degree Difficulty w/ Childcare or Family Care: No Living arrangements: with family Occupation/Education: occupation 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 Informed Consent: The patient's anesthetic plan and its attendant risks and benefits were discussed with the patient/family/POA. Questions were solicited and answers provided to the satisfaction of the patient/family/POA.
--- NOTE | 2025-01-16 11:15 | PM.IMHP ---
H&P: HPI History of Present Illness Date/Time: 01/16/25 11:15 Chief Complaint: screening for colorectal cancer Narrative: this is a 44-year-old man who presents for his 1st colonoscopy. He denies any hematochezia or melena. He denies family history of colon cancer. Review of Systems Review of Systems: All systems reviewed & are unremarkable except as noted in HPI and below Constitutional: Constitutional: Denies chills, Denies fever(s), Denies headache(s) and Denies weight loss Eyes: Eyes: Denies change in vision ENT: Denies dizziness, Denies headache(s), Denies neck mass and Denies throat swelling Cardiovascular: Cardiovascular: Denies chest pain, Denies lightheadedness and Denies dyspnea Respiratory: Respiratory: Denies cough, Denies dyspnea and Denies wheezing Gastrointestinal: Gastrointestinal: Denies abdominal pain, Denies change in bowel habits, Denies nausea and Denies vomiting Genitourinary: Genitourinary: Denies hematuria and Denies dysuria Musculoskeletal: Musculoskeletal: Reports as per HPI Integumentary/Breasts: Skin/Breast: Reports as per HPI Neurologic: Denies dizziness and Denies headache(s) Allergic/Immunologic: Allergic/Immunologic: Denies throat swelling and Denies wheezing PMFSH Past Medical History Medical History Hyperlipidemia Hypothyroidism Hypertension Surgical History Surgical History History of nasal septoplasty Hx of LASIK Family History Family History Mother Patient's mother is in good health Father Patient's father is Hypertension Social History Social History Smoking status: Never smoker Second hand tobacco smoke exposure: No Alcohol intake: never Substance use: never Substance use type: does not use Do You Feel Safe in your Home?: Yes Lack of Transportation: No Lack of Food: Never True Current Housing: I Have Housing Concerned About Future Housing: No Difficulty Paying Gas/Electric Bills: No Difficulty Paying for Meds: No Currently Unemployed: No Education: Bachelor's Degree Difficulty w/ Childcare or Family Care: No Living arrangements: with family Occupation/Education: occupation 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 Spiritual care concerns: No Meds Home Medications and Allergies Home Medications ?Medication ?Instructions ?Recorded ?Confirmed ?Type Lactobacillus 1 cap PO DAILY 08/26/21 01/16/25 History acidophilus-Bifidobac.animalis 2.5 billion cell capsule (Daily Probiotic) omega 3,5,6,7,9 combination no.1 1 cap PO DAILY 08/26/21 01/16/25 History 700 mg-salmon oil 1,500 mg capsule (Complete [place]) lisinopril 10 mg tablet 10 mg PO DAILY #90 tabs 07/19/24 01/16/25 Rx Allergies Allergy/AdvReac Type Severity Reaction Status Date / Time No Known Allergies Allergy Verified 01/16/25 10:20 Vital Signs Vital Signs - 24 hr 01/16/25 10:21 Temperature 97.2 F L Pulse Rate 69 Respiratory Rate 18 Blood Pressure 154/96 H Pulse Oximetry 99 Oxygen Delivery Room Air Exam Const: General: no acute distress and alert Orientation/consciousness: patient oriented x3 HENMT: Head: normocephalic and atraumatic Ears: hearing grossly normal bilaterally Face/Nose/Sinus: Normal nares present Mouth: Yes Normal oral and palatal mucosa present Eyes: Periorbital: periorbital findings normal Sclera: sclerae normal EOM: EOMs intact bilaterally Neck: Neck: normal visual inspection, no lymphadenopathy and trachea midline Chest: Chest palpation & inspection: normal inspection of the chest Resp: Effort & Inspection: normal respiratory effort Auscultation: clear to auscultation bilaterally Cardio: Jugular venous distension: no JVD Rate: regular rate Rhythm: regular rhythm Heart sounds: S1 normal heart sound present and S2 normal heart sound present Peripheral pulses: Peripheral pulses 2+ throughout GI: Inspection: normal to inspection GI Palp: Yes Soft to palpation, No Tenderness to palpation present (GI), No Guarding due to palpation present (GI) and No Rebound tenderness present Percussion: Yes normal to percussion Auscultation: normal bowel sounds : General: Yes no CVA tenderness Back/Spine/Pelvis: Back: no CVA tenderness Neuro: General: patient oriented x3, no focal motor deficits and CN's II-XI intact bilaterally Cognition (Neuro): normal cognition Speech: normal speech Motor exam (neuro): 5/5 motor strength present throughout Extrem: General: capillary refill normal and no clubbing, cyanosis or edema Assessment and Plan Assessment and plan (1) Screening for colorectal cancer: Code(s): Z12.11 - Encounter for screening for malignant neoplasm of colon; Z12.12 - Encounter for screening for malignant neoplasm of rectum Status: Acute Assessment and Plan: I have recommended colonoscopy. I have discussed the procedure, risks, benefits, and alternatives. Questions were answered. Patient is agreeable to proceed.
[2025-01-16 11:36] VITALS: BP 104/67; PULSE 74; RESP 18; O2SAT 99
[2025-01-16 11:46] VITALS: BP 106/70; PULSE 72; RESP 16; O2SAT 100
[2025-01-16 11:56] VITALS: BP 115/84; PULSE 68; RESP 18; O2SAT 100
== END 2025-01-16 12:08 | disposition home or self-care (01) ==
PROVIDERS: PCP Internal Medicine; Visit Provider Surgery
PROC: 0DJD8ZZ Inspection of Lower Intestinal Tract, Via Natural or Artificial Opening Endoscopic (ICD-10-PCS; CPT 45378; principal; 2025-01-16 11:30)
DX: Z12.11 Encounter for screening for malignant neoplasm of colon (principal); E78.5 Hyperlipidemia, unspecified; E03.9 Hypothyroidism, unspecified; I10 Essential (primary) hypertension; Z98.890 Other specified postprocedural states
CPT/HCPCS: 45378; J2003; J2704; J7120